=== PATIENT | male | born 1970 | race Caucasian/White ===

== ENCOUNTER 2016-04-16 18:19 | Emergency (ER) | payer SELFPAY ==
[2016-04-16 18:28] VITALS: RESP 16
--- NOTE | 2016-04-16 18:45 | EDPHY ---
H & P Time Seen by Provider: 04/16/16 18:20 HPI/ROS: CHIEF COMPLAINT: Right knee pain and swelling HISTORY OF PRESENT ILLNESS: Patient went for a longer and more technical mountain bike ride on Friday morning and then that evening or nighttime started with right knee pain redness and swelling. Over the last 2 days both the pain and the swelling have slightly decreased but are not entirely gone. He presents now with swelling in his right calf today. REVIEW OF SYSTEMS: No chest pain or shortness of breath. No fever or chills. 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 Patient has some scattered red patches on his legs which he says are chronic. Right knee has redness warmth and swelling over the patella but full range of motion active and passive. Right knee joint is stable. He is not tender to palpation over the area of redness. It does not extend proximally to the thigh or distally to the murray. Some right calf swelling but no tenderness to palpation and compartments are soft and both thigh and the calf. Normal right ankle and foot. No lymphangitis and no crepitus. No blisters or eschar. Normal motor and sensory in the right foot and normal dorsalis pedis pulse. Emergency Department course/MDM: Patient traveled to [place] couple of weeks ago but that was by air. He does not have personal or family history of venous thromboembolism. I think it is most likely that this represents prepatellar bursitis. Possibly triggered by his extensive mountain bike ride which was more vigorous than usual. I think septic joint is unlikely given improvement in symptoms and full range of motion and lack of fever. Plan for x-ray and ultrasound to evaluate for DVT. 1904: X-ray results discussed. 1944: DVT on US result discussed in detail. Possible that bursitis led to decreased mobility of leg, then subsequent DVT. Emphasized to the patient that exact sequence not definitive. Anticoagulation with Eliquis discussed including risks bleeding including possible disability/ if ICH, benefit including prevention of PE or worsening DVT, and consented. Warned no mountain bike riding. Warned no proven reversal agent for Eliquis. Will contact his PCP tomorrow to discuss long term care social worker agents for anticoagulation, further hematologic workup. Attempted to contact PCP Nelida from [facility] but [employer] told me voicemail with no after hours contact. Not likely PE. Discussed with case monitor Marissa at 1350 on 04/17 will contact patient directly to facilitate primary care followup for issues as above. Smoking Status: Never smoked Constitutional: Initial Vital Signs Temperature (C) 36.7 C 04/16/16 18:24 Heart Rate 53 L 04/16/16 18:24 Respiratory Rate 16 04/16/16 18:24 Blood Pressure 140/87 H 04/16/16 18:24 O2 Sat (%) 98 04/16/16 18:24 O2 Delivery Mode Room Air Allergies/Adverse Reactions: No Known Allergies Allergy (Unverified 04/16/16 18:28) Home Medications: Medication Instructions Recorded NK [No Known Home Meds] 04/16/16 Medical Decision Making - Diagnostics Imaging: The right knee x-ray viewed by myself shows prepatellar bursitis otherwise negative. Bilateral DVT ultrasound in the peroneal veins of the calf but nothing more proximal; Hao 1933.. Differential Diagnosis: Differential considered including but not limited to septic joint, bursitis, DVT , cellulitis, fracture, arterial occlusion, fasciitis, compartment syndrome. - Data Points Laboratory Results: Laboratory Results 04/16/16 20:00 Medications Given: Discontinued Medications Apixaban (Eliquis) 10 mg PO EDNOW ONE Stop: 04/16/16 20:03 Last Admin: 04/16/16 20:40 Dose: 10 mg Departure - Departure Disposition: Home, Routine, Self-Care Clinical Impression: Bursitis, prepatellar, right, DVT (deep venous thrombosis) Condition: Good Instructions: Apixaban (By mouth), Knee Bursitis (ED), Deep Venous Thrombosis ( ED) Additional Instructions: Eliquis 10 mg orally twice a day, (once every 12 hours) for 7 days and then 5 mg orally every 12 hours. You're discharged with 30 day Eliquis coupon. Referrals: Ariel Puga MD [Medical Doctor] - 3-4 days, if not improved (ortho referral if not improving.) Padmini Krause MD [Primary Care Provider] - 1 day without fail (Please try to follow up with Dr. Krause in the office tomorrow.)
[2016-04-16] MEDS ORDERED: APIXABAN 5 MG TAB PO ONE (20:02)
[2016-04-16 20:16] LABS: % IMMATURE GRANULYOCYTES 0.3 % (0.0-1.1); ABSOLUTE IMMATURE GRANULOCYTES 0.02 10^3/uL (0.00-0.10); ADD DIFF? NO; ADD MORPH? NO; ADD SCAN? NO; ATYPICAL LYMPHOCYTE FLAG 10 (0-99); FRAGMENT RBC FLAG 0 (0-99); HEMATOCRIT 41.4 % (40.0-51.0); HEMOGLOBIN 14.7 g/dL (13.7-17.5); LEFT SHIFT FLG 0 (0-99); LIPEMIA HEMOLYSIS FLAG 90 (0-99); MEAN CELL HEMOGLOBIN 32.9 pg (27.9-34.1); MEAN CELL HEMOGLOBIN CONCENTR. 35.5 g/dL (32.4-36.7); MEAN CELL VOLUME 92.6 fL (81.5-99.8); MEAN PLATELET VOLUME 9.9 fL (8.7-11.7); PLATELET CLUMPS FLAG 0 (0-99); PLATELET COUNT 194 10^3/uL (150-400); RED BLOOD CELL COUNT 4.47 10^6/uL (4.40-6.38); RED CELL DISTRIBUTION WIDTH 12.2 % (11.5-15.2)
[2016-04-16 20:39] LABS: INR 1.02 (0.83-1.16); PROTIME(PATIENT) 13.3 SEC (12.0-15.0)
[2016-04-16 20:40] LABS: APTT 29.2 SEC (23.0-38.0)
[2016-04-16 20:46] VITALS: BP 120/73; PULSE 62; TEMP 98.2; O2SAT 96
== END 2016-04-16 20:50 | disposition home or self-care (01) ==
DX: M70.41 Prepatellar bursitis, right knee (principal); I82.401 Acute embolism and thrombosis of unspecified deep veins of right lower extremity
CPT/HCPCS: 82947-QW